=== PATIENT | male | born 1980 | race Hispanic/Latino ===

== ENCOUNTER 2022-03-12 15:02 | Emergency (ER) | payer MEDICAID ==
[~2022-03-12] VITALS: Ht 172.7 cm; Wt 95.0 kg
[~2022-03-12 15:02] MED LIST: ACYCLOVIR200 MG/5 M PO
[2022-03-12 17:53] VITALS: BP 127/71
== END 2022-03-12 17:53 | disposition home or self-care (01) ==
LOC: ED 15:02
DX: S90.112A Contusion of left great toe without damage to nail, initial encounter (principal); R62.50 Unspecified lack of expected normal physiological development in childhood; F84.0 Autistic disorder; W19.XXXA Unspecified fall, initial encounter

== ENCOUNTER 2022-07-04 22:50 | Emergency (ER) | payer MEDICAID ==
[~2022-07-04] VITALS: Ht 172.7 cm; Wt 95.0 kg
[2022-07-04 22:55] VITALS: BP 130/82
[2022-07-04 23:00] VITALS: BP 117/82
[2022-07-04 23:15] VITALS: BP 117/79
[2022-07-04 23:21] LABS: BASO% 0.4 % (0-3); EOS% 0.6 % (0-8); HEMATOCRIT 40.2 % (39.0-50.0); HEMOGLOBIN 13.1 g/dl (14.0-18.0); IMMATURE GRANULOCYTES 0.2 % (0.0-5.0); LYMPH% 27.6 % (15-41); MEAN CELL VOLUME 79.4 fL CALC (80.0-100.0); MEAN CORPUSCULAR HGB 25.9 pG CALC (26.0-32.0); MEAN CORPUSCULAR HGB CONC 32.6 g/dL CAL (32.0-36.0); MONO% 12.5 % (2-13); NEUT# 2.99 thou/uL (1.82-7.42); NEUT% 58.7 % (42-76); RED BLOOD COUNT 5.06 mill/uL (4.70-6.10); RED CELL DISTRI WIDTH 13.4 % (11.5-15.5)
[2022-07-04 23:28] LABS: ALBUMIN 4.8 g/dL (3.2-5.0); ALKALINE PHOSPHATASE 51 u/l (38-126); ANION GAP 12 (6-22 (CALC)); BUN 17 mg/dL (9-20); BUN/CREATININE RATIO 20 (12-20 (CALC)); CARBON DIOXIDE 30 mmol/l (22-30); CHLORIDE 104 mmol/l (95-108); CREATININE 0.9 mg/dL (0.7-1.3); GFR FOR AFR.AMER. > 60 ML/MIN (>=60 (CALC)); GFR OTHER RACES > 60 ML/MIN (>=60 (CALC)); LIPASE 306 u/l (23-300); POTASSIUM 4.1 mmol/l (3.5-5.1); SGOT/AST 34 u/l (17-59); SODIUM 141 mmol/l (137-146)
[2022-07-04 23:29] LABS: BILIRUBIN, TOTAL 0.4 mg/dL (0.2-1.3)
[2022-07-04 23:30] VITALS: BP 117/76
[2022-07-04 23:42] LABS: URINE BILIRUBIN - DIPSTICK NEGATIVE (NEGATIVE); URINE BLOOD DIPSTICK NEGATIVE (NEGATIVE); URINE COLOR YELLOW; URINE GLUCOSE - DIPSTICK NEGATIVE (NEGATIVE); URINE KETONE NEGATIVE (NEGATIVE); URINE LEUK ESTERASE NEGATIVE (NEGATIVE); URINE PROTEIN - DIPSTICK NEGATIVE (NEG-TRACE); URINE SPECIFIC GRAVITY >=1.030; URINE UROBILINOGEN - DIPSTICK 0.2 E.U./dL (0.2)
[2022-07-04 23:43] LABS: URINE NITRITE - DIPSTICK NEGATIVE (Negative)
[2022-07-05] MEDS ORDERED: CITRATE OF MEGNESIA PO (01:40)
[2022-07-05] MEDS ORDERED: MIRALAX17 GM PO (01:40)
[2022-07-05 01:53] VITALS: BP 117/76
== END 2022-07-05 02:08 | disposition home or self-care (01) ==
LOC: ED 22:50
PROVIDERS: Family Medicine
DX: R10.9 Unspecified abdominal pain (principal); F84.0 Autistic disorder
CPT/HCPCS: Q9967; S0164